=== PATIENT | female | born 1945 | race Caucasian/White ===

== ENCOUNTER 2020-01-14 15:30 | Emergency (ER) | payer OTHER ==
[2020-01-14 15:45] VITALS: TEMP 97.7; BMI 31.8
--- NOTE | 2020-01-14 16:08 | PDOC ---
History of Present Illness - General Chief Complaint: Diarrhea Stated Complaint: ABD PAIN/DIARRHEA Time Seen by Provider: 01/14/20 16:08 History Source: Patient Exam Limitations: No Limitations - History of Present Illness Initial Comments: 01/14/20 16:25 74F with PMH of asthma, HTN, DM, kidney stones, cholelithiasis, obesity presents to ED with "diarrhea" that started today. She reports 2 watery bowel movements today associated with nausea w/o vomiting, and nonradiating lower abd pain. Currently denies these symptoms. Denies fevers/chills, cp, sob, hematochezia, dysuria, hematuria. PMH: as in HPI SH: see below Meds: see med list Allergies: PCN Tob/Etoh/Rec drugs: neg x3 ROS GENERAL/CONSTITUTIONAL: No fever or chills. No weakness. HEENT: No change in vision. No ear pain or discharge. No sore throat. CARDIOVASCULAR: No chest pain or shortness of breath RESPIRATORY: No cough, wheezing, or hemoptysis. GASTROINTESTINAL: +nausea, no vomiting, +diarrhea, no constipation GENITOURINARY: No dysuria, frequency, or change in urination. MUSCULOSKELETAL: No joint or muscle swelling or pain. No neck or back pain. SKIN: No rash NEUROLOGIC: No headache, vertigo, loss of consciousness, or change in strength/sensation. ENDOCRINE: No increased thirst. No abnormal weight change HEMATOLOGIC/LYMPHATIC: No anemia, easy bleeding, or history of blood clots. ALLERGIC/IMMUNOLOGIC: No hives or skin allergy. PE GENERAL: Awake, alert, and fully oriented; no acute distress HEAD: No signs of trauma, normocephalic, atraumatic EYES: PERRLA, EOMI, sclera anicteric, conjunctiva clear ENT: Auricles normal inspection, hearing grossly normal, nares patent, moist mucosa, oropharynx clear without exudates. NECK: Normal ROM, supple, no LAD, JVD, or masses HEART: Regular rate and rhythm, normal S1/S2, no murmurs, rubs or gallops, peripheral pulses normal and equal bilaterally. LUNGS: No distress, speaks full sentences, clear to auscultation bilaterally ABDOMEN: Soft, nontender. No guarding, no rebound. No masses. Neg garcia sign. No CVA tenderness. EXTREMITIES: Normal inspection, Normal range of motion, no edema. No clubbing or cyanosis. NEUROLOGICAL: CNII-XII grossly intact. Normal speech, no focal sensorimotor deficits SKIN: Warm, Dry, normal turgor, no rashes or lesions noted Past History - Medical History Allergies/Adverse Reactions: Allergies Allergy/AdvReac Type Severity Reaction Status Date / Time Penicillins Allergy Verified 01/14/20 15:39 Home Medications: Ambulatory Orders Unobtainable 11/22/13 Asthma: Yes COPD: No GI Disorders: Yes (GERD) HTN: Yes - Psycho-Social/Smoking History Smoking History: Never smoked Have you smoked in the past 12 months: No - Substance Abuse Hx (Audit-C & DAST Scrn) How often the patient has a drink containing alcohol: Never Score: In Men: 4 or > Positive; In Women: 3 or > Positive: 0 Screen Result (Pos requires Nsg. Audit-10AR): Negative In the last yr the pt used illegal drug/Rx for NonMed reason: No Score: Yes response is considered Positive: 0 Screen Result (Positive result requires Nsg. DAST-10): Negative *Physical Exam - Vital Signs Last Vital Signs Temp Pulse Resp BP Pulse Ox 97.7 F 93 H 18 142/75 96 01/14/20 15:33 01/14/20 15:33 01/14/20 15:33 01/14/20 15:33 01/14/20 15:33 ED Treatment Course - LABORATORY CBC & Chemistry Diagram: 01/14/20 16:15 01/14/20 16:15 Medical Decision Making - Medical Decision Making 01/14/20 16:29 74F with PMH of asthma, HTN, DM, kidney stones, cholelithiasis, obesity presents to ED with "diarrhea" that started today. Abdominal exam unimpressive. DDx: 1. Gastroenteritis -> nausea with subjective diarrhea 2. Diverticulitis 3. UTI/cystitis -> UA -> UA negative 4. ACS r/o -> trop neg, EKG normal sinus rhythm w/o ST-T changes 01/14/20 19:54 -CBC and CMP unremarkable -Pt stable for d/c and advised to follow up with PCP Discharge - Discharge Information Problems reviewed: Yes Clinical Impression/Diagnosis: Abdominal pain Qualifiers: Abdominal location: unspecified location Qualified Code(s): R10.9 - Unspecified abdominal pain Diarrhea Qualifiers: Diarrhea type: unspecified type Qualified Code(s): R19.7 - Diarrhea, unspecified Condition: Stable Disposition: HOME - Admission No - Follow up/Referral Referrals: Dennis Reddy MD [Primary Care Provider] - - Patient Discharge Instructions Patient Printed Discharge Instructions: DI for Abdominal Pain-Adult, DI for Diarrhea and Traveler's Diarrhea -- Adult - Post Discharge Activity
[2020-01-14] MEDS ORDERED: LACTATED RINGERS SOLUTION 1000 ML INFUS.BAG IV ONE (17:07)
[2020-01-14 17:25] LABS: BASO % 1.1 % (0-2.0); EOS % 2.5 % (0-4.5); HEMATOCRIT 43.3 % (32.4-45.2); HEMOGLOBIN 14.4 GM/dL (10.7-15.3); LYMPH % 14.9 % (8-40); MCHC 33.2 g/dl (32.0-36.0); MEAN CELL VOLUME 81.2 fl (80-96); MEAN PLT VOLUME 9.2 fl (7.5-11.1); MONO % 8.6 % (3.8-10.2); NEUT % 72.9 % (42.8-82.8); PLATELET COUNT 223 K/MM3 (134-434); RBC 5.34 M/mm3 (3.60-5.2); WHITE BLOOD COUNT 7.4 K/mm3 (4.0-10.0)
--- NOTE | 2020-01-14 17:39 | PDOC ---
Documentation entered by Radha Goncalves SCRIBE, acting as scribe for Hayden Wang MD. Hayden Wang MD: This documentation has been prepared by the scribeSacha Ana, SCRIBE, under my direction and personally reviewed by me in its entirety. I confirm that the documentation accurately reflects all work, treatment, procedures, and medical decision making performed by me. Attending Attestation - Resident Resident Name: Christiano Marroquin - ED Attending Attestation I have performed the following: I have examined & evaluated the patient, The case was reviewed & discussed with the resident, I agree w/resident's findings & plan, Exceptions are as noted - HPI HPI: 01/14/20 17:11 Patient is a 74 year old female with a significant past medical history of asthma and GERD who presents to the emergency department for abdominal pain and diarrhea since this morning. Patient denies: fever, chills, headache, dizziness, SOB, nausea, vomiting, cough, chest pain, diarrhea, constipation, dysuria, frequency, urgency, h ematuria, or any other related symptoms. Allergies: Penicillin - Physicial Exam PE: 01/14/20 17:35 EXAMINATION CONSTITUTIONAL: Well-appearing; well-nourished; in no apparent distress EYES: PERRL; EOM intact CARD: Normal S1, S2; no murmurs, rubs, or gallops RESP: Normal chest excursion with respiration; breath sounds clear and equal bilaterally; no wheezes, rhonchi, or rales ABD: Soft, non-distended; non-tender; no palpable organomegaly, no palpable hernias EXT: Normal ROM in all four extremities; non-tender to palpation; distal pulses intact SKIN: Warm, dry, no rash NEURO: No focal neurological deficiencies. - Medical Decision Making 01/14/20 17:37 74-year-old female with history of arthritis and GERD presents with intermittent abdominal pain and loose watery stools. In the ER, patient is awake and alert, afebrile, nontoxic-appearing. Serial abdominal exams reveal no significant focal tenderness, there is no guarding rebound. Patient tolerates p.o. Differential diagnosis includes AGE versus colitis versus diverticulitis. Will obtain CBC/CMP/UA. Will administer LR. Will reassess. Will consider CT of abdomen pelvis if significant leukocytosis or focal tenderness develops. 01/14/20 19:38 Patient resting comfortably, symptom-free. Tolerates p.o. Repeat abdominal exam reveals no focal tenderness. CBC reveals no evidence of leukocytosis. UA shows 24 WBCs but 14 epithelial cells likely consistent with contamination. I do not suspect UTI. Will discharge. Discharge - Discharge Information Problems reviewed: Yes Clinical Impression/Diagnosis: Abdominal pain Qualifiers: Abdominal location: unspecified location Qualified Code(s): R10.9 - Unspecified abdominal pain Diarrhea Qualifiers: Diarrhea type: unspecified type Qualified Code(s): R19.7 - Diarrhea, unspecified Condition: Stable Disposition: HOME - Follow up/Referral Referrals: Dennis Reddy MD [Primary Care Provider] - - Patient Discharge Instructions Patient Printed Discharge Instructions: DI for Abdominal Pain-Adult, DI for Diarrhea and Traveler's Diarrhea -- Adult - Post Discharge Activity
[2020-01-14 17:46] LABS: ALBUMIN 3.7 g/dl (3.4-5.0); ALK PHOS 40 U/L (45-117); ANION GAP 5 MMOL/L (8-16); BILIRUBIN,TOTAL 0.5 mg/dL (0.2-1); BLOOD UREA NITROGEN 9.3 mg/dL (7-18); CALCIUM 9.5 mg/dL (8.5-10.1); CHLORIDE 105 mmol/L (98-107); CO2 28 mmol/L (21-32); CREATININE 0.8 mg/dL (0.55-1.3); GLUCOSE,RANDOM 121 mg/dL (74-106); POTASSIUM 4.9 mmol/L (3.5-5.1); SGOT/AST 19 U/L (15-37); SGPT/ALT 20 U/L (13-61); SODIUM 138 mmol/L (136-145); TOT PROT 7.4 g/dl (6.4-8.2)
[2020-01-14 19:19] LABS: EPI CELLS 14 /uL (0-25.1); HYALINE CASTS 0 /uL (0-3.1); URINE APPEARANCE CLEAR; URINE BACTERIA 171 /uL (0-1359); URINE BILIRUBIN NEGATIVE (NEGATIVE); URINE COLOR YELLOW; URINE GLUCOSE (UA) NEGATIVE (NEGATIVE); URINE KETONE NEGATIVE (NEGATIVE); URINE LEUK ESTERASE 1+ (NEGATIVE); URINE NITRITE NEGATIVE (NEGATIVE); URINE PROTEIN NEGATIVE (NEGATIVE); URINE UROBILINOGEN 0.2 mg/dL (0.2-1.0); URINE WBC 24 /uL (0-25.8)
[2020-01-14 19:58] VITALS: BP 138/72; PULSE 80
[2020-01-14 20:53] LABS: URINE RBC 46.5 /uL (0-23.9)
--- NOTE | 2020-01-17 11:41 | EKG ---
Test Reason : Blood Pressure : / mmHG Vent. Rate : 085 BPM Atrial Rate : 085 BPM P-R Int : 192 ms QRS Dur : 072 ms QT Int : 376 ms P-R-T Axes : 050 008 016 degrees QTc Int : 447 ms POOR DATA QUALITY, INTERPRETATION MAY BE ADVERSELY AFFECTED NORMAL SINUS RHYTHM NONSPECIFIC ST ABNORMALITY ABNORMAL ECG WHEN COMPARED WITH ECG OF 23-OCT-2006 18:17, NO SIGNIFICANT CHANGE WAS FOUND Confirmed by Julio Westbrook ([id number]) on 01/17/2020 11:41:10 AM Referred By: Confirmed By:Julio Westbrook
== END 2020-01-14 19:58 | disposition home or self-care (01) ==
LOC: JER 15:30
DX: R10.9 Unspecified abdominal pain (principal); R19.7 Diarrhea, unspecified
CPT/HCPCS: 36415; 80053; 81003; 82550; 84484; 85025; 93005; 93010; 99284-25; U0003

== ENCOUNTER 2021-04-19 16:06 | Inpatient (IN) | payer OTHER ==
[2021-04-19] MEDS ORDERED: DEXAMETHASONE SOD PHOSPHATE 4 MG/1 ML VIAL IVPUSH ONE (17:43)
[2021-04-19] MEDS ORDERED: DEXAMETHASONE SOD PHOSPHATE 10 MG/1 ML VIAL ONE (17:48)
[2021-04-19 18:23] LABS: BASO % 2.7 % (0-2.0); EOS % 1.2 % (0-4.5); HEMATOCRIT 41.5 % (32.4-45.2); HEMOGLOBIN 13.4 GM/dL (10.7-15.3); LYMPH % 6.8 % (8-40); MCH 26.4 pg (25.7-33.7); MCHC 32.3 g/dl (32.0-36.0); MEAN PLT VOLUME 8.9 fl (7.5-11.1); MONO % 13.4 % (3.8-10.2); NEUT % 75.9 % (42.8-82.8); PLATELET COUNT 187 10^3/uL (134-434); RBC 5.07 M/mm3 (3.60-5.2); RDW 15.1 % (11.6-15.6); WHITE BLOOD COUNT 5.7 K/mm3 (4.0-10.0)
[2021-04-19 18:32] LABS: INR 1.16 (0.83-1.09)
[2021-04-19 18:35] LABS: ACTIVATED PTT 26.8 SECONDS (25.2-36.5)
[2021-04-19 18:43] LABS: CHLORIDE 106 mmol/L (98-107); SODIUM 135 mmol/L (136-145)
[2021-04-19 18:45] LABS: ALBUMIN 3.6 g/dl (3.4-5.0); BILIRUBIN,DIRECT < 0.1 mg/dL (0.0-0.2); BLOOD UREA NITROGEN 13.6 mg/dL (7-18); CALCIUM 9.2 mg/dL (8.5-10.1); CO2 26 mmol/L (21-32); GLUCOSE,RANDOM 129 mg/dL (74-106)
[2021-04-19 18:47] LABS: CREATININE 0.9 mg/dL (0.55-1.3); LDH 588 U/L (84-246)
[2021-04-19 18:48] LABS: SGOT/AST 89 U/L (15-37)
[2021-04-19 18:49] LABS: BILIRUBIN,TOTAL 0.4 mg/dL (0.2-1); TOT PROT 7.4 g/dl (6.4-8.2)
[2021-04-19 18:51] LABS: ALK PHOS 36 U/L (45-117)
[2021-04-19 19:59] LABS: ANION GAP 4 MMOL/L (8-16); SGPT/ALT 30 U/L (13-61)
[2021-04-19 20:51] LABS: EPI CELLS 12 /uL (0-25.1); HYALINE CASTS 0 /uL (0-3.1); URINE APPEARANCE CLEAR; URINE BACTERIA 185 /uL (0-1359); URINE BILIRUBIN NEGATIVE (NEGATIVE); URINE COLOR YELLOW; URINE GLUCOSE (UA) NEGATIVE (NEGATIVE); URINE KETONE NEGATIVE (NEGATIVE); URINE LEUK ESTERASE TRACE (NEGATIVE); URINE NITRITE NEGATIVE (NEGATIVE); URINE PROTEIN NEGATIVE (NEGATIVE); URINE RBC 7 /uL (0-23.9); URINE UROBILINOGEN 0.2 mg/dL (0.2-1.0); URINE WBC 23 /uL (0-25.8)
[2021-04-19 23:36] LABS: CALCIUM 9.5 mg/dL (8.5-10.1)
[2021-04-19 23:38] LABS: BLOOD UREA NITROGEN 14.5 mg/dL (7-18)
[2021-04-19 23:40] LABS: CREATININE 1.1 mg/dL (0.55-1.3)
[2021-04-20 05:40] VITALS: BMI 37.1
[2021-04-20] MEDS: INSULIN SLIDING SCALE (NOVOLOG) 1 VIAL SQ SCH ×4 (06:21→21:07)
[2021-04-20] MEDS ORDERED: PT OWN MED DRAWER 7, Y5N ONE (09:15)
[2021-04-20] MEDS: CHOLECALCIFEROL (VIT D3) 1,000 UNIT (25 MCG) TABLET PO SCH (09:18)
[2021-04-20] MEDS: ASCORBIC ACID 500 MG TABLET (FP) PO SCH ×2 (09:18→21:07)
[2021-04-20] MEDS: DEXAMETHASONE SOD PHOSPHATE 4 MG/1 ML VIAL IVPB SCH (09:19)
[2021-04-20] MEDS: ENOXAPARIN NA (PORCINE) 40 MG/0.4 ML DISP.SYRIN SQ SCH (09:20)
[2021-04-20 10:33] LABS: BASO % 0.2 % (0-2.0); HEMATOCRIT 40.9 % (32.4-45.2); HEMOGLOBIN 13.4 GM/dL (10.7-15.3); LYMPH % 11.7 % (8-40); MCH 26.9 pg (25.7-33.7); MCHC 32.8 g/dl (32.0-36.0); MEAN CELL VOLUME 82.1 fl (80-96); MEAN PLT VOLUME 9.2 fl (7.5-11.1); MONO % 3.6 % (3.8-10.2); NEUT % 84.5 % (42.8-82.8); PLATELET COUNT 210 10^3/uL (134-434); RBC 4.97 M/mm3 (3.60-5.2); RDW 14.9 % (11.6-15.6); WHITE BLOOD COUNT 4.9 K/mm3 (4.0-10.0)
[2021-04-20 10:51] LABS: CHLORIDE 105 mmol/L (98-107); SODIUM 138 mmol/L (136-145)
[2021-04-20 11:03] LABS: CALCIUM 9.2 mg/dL (8.5-10.1)
[2021-04-20 11:04] LABS: ALBUMIN 3.2 g/dl (3.4-5.0); ANION GAP 10 MMOL/L (8-16); BLOOD UREA NITROGEN 15.4 mg/dL (7-18); CO2 23 mmol/L (21-32); GLUCOSE,RANDOM 232 mg/dL (74-106)
[2021-04-20 11:05] LABS: PHOSPHOROUS 3.3 mg/dL (2.5-4.9); SGPT/ALT 24 U/L (13-61)
[2021-04-20 11:07] LABS: BILIRUBIN,TOTAL 0.4 mg/dL (0.2-1); CREATININE 0.9 mg/dL (0.55-1.3); SGOT/AST 17 U/L (15-37); TOT PROT 6.8 g/dl (6.4-8.2)
[2021-04-20 11:09] LABS: ALK PHOS 33 U/L (45-117)
[2021-04-20] MEDS ORDERED: PANTOPRAZOLE 40 MG TABLET PO ONE (22:16)
[2021-04-21] MEDS: INSULIN SLIDING SCALE (NOVOLOG) 1 VIAL SQ SCH ×4 (06:21→21:11)
[2021-04-21] MEDS ORDERED: PT OWN MED DRAWER 7, Y5N ONE (09:01)
[2021-04-21] MEDS: DEXAMETHASONE SOD PHOSPHATE 4 MG/1 ML VIAL IVPB SCH (09:07)
[2021-04-21] MEDS: CHOLECALCIFEROL (VIT D3) 1,000 UNIT (25 MCG) TABLET PO SCH (09:07)
[2021-04-21] MEDS: ASCORBIC ACID 500 MG TABLET (FP) PO SCH ×2 (09:07→21:09)
[2021-04-21] MEDS: ENOXAPARIN NA (PORCINE) 40 MG/0.4 ML DISP.SYRIN SQ SCH (09:09)
[2021-04-21] MEDS ORDERED: INSULIN (NOVOLOG) ASPART 100 UNITS/ML 10ML VIAL ONE (10:49)
[2021-04-21] MEDS ORDERED: guaiFENesin 200 MG/10 ML 10 ML UNIT-DOSE CUPS PO ONE (21:18)
[2021-04-22] MEDS: INSULIN SLIDING SCALE (NOVOLOG) 1 VIAL SQ SCH ×3 (06:12→17:06)
[2021-04-22] MEDS: DEXAMETHASONE SOD PHOSPHATE 4 MG/1 ML VIAL IVPB SCH (09:35)
[2021-04-22] MEDS: ENOXAPARIN NA (PORCINE) 40 MG/0.4 ML DISP.SYRIN SQ SCH (09:36)
[2021-04-22] MEDS: ASCORBIC ACID 500 MG TABLET (FP) PO SCH (09:36)
[2021-04-22] MEDS ORDERED: PANTOPRAZOLE 40 MG TABLET PO SCH (10:00)
[2021-04-22 10:12] LABS: BASO % 0.3 % (0-2.0); EOS % 0.1 % (0-4.5); HEMATOCRIT 41.3 % (32.4-45.2); HEMOGLOBIN 13.6 GM/dL (10.7-15.3); LYMPH % 11.5 % (8-40); MCH 27.1 pg (25.7-33.7); MEAN CELL VOLUME 81.9 fl (80-96); MEAN PLT VOLUME 9.6 fl (7.5-11.1); MONO % 6.1 % (3.8-10.2); PLATELET COUNT 234 10^3/uL (134-434); RBC 5.03 M/mm3 (3.60-5.2); RDW 15.2 % (11.6-15.6); WHITE BLOOD COUNT 9.6 K/mm3 (4.0-10.0)
[2021-04-22 10:20] LABS: CHLORIDE 103 mmol/L (98-107); SODIUM 140 mmol/L (136-145)
[2021-04-22 10:27] LABS: ALBUMIN 3.8 g/dl (3.4-5.0); ANION GAP 7 MMOL/L (8-16); BLOOD UREA NITROGEN 23.1 mg/dL (7-18); CALCIUM 9.3 mg/dL (8.5-10.1); CO2 29 mmol/L (21-32); GLUCOSE,RANDOM 132 mg/dL (74-106); MAGNESIUM 2.4 mg/dL (1.8-2.4); PHOSPHOROUS 3.7 mg/dL (2.5-4.9)
[2021-04-22 10:28] LABS: SGPT/ALT 21 U/L (13-61)
[2021-04-22 10:29] LABS: BILIRUBIN,TOTAL 0.5 mg/dL (0.2-1)
[2021-04-22 10:30] LABS: ALK PHOS 30 U/L (45-117); CREATININE 0.9 mg/dL (0.55-1.3); SGOT/AST 13 U/L (15-37)
[2021-04-22 10:33] LABS: LDH 162 U/L (84-246)
[2021-04-22 10:52] LABS: ERYTHROCYTE SEDIMENTATION RATE 7 mm/hr (0-30)
[2021-04-22] MEDS: CHOLECALCIFEROL (VIT D3) 1,000 UNIT (25 MCG) TABLET PO SCH (12:28)
[2021-04-22 15:59] VITALS: BP 140/79; PULSE 71; TEMP 98.2
[2021-04-22] MEDS ORDERED: ROSUVASTATIN CA 10 MG TABLET PO SCH (22:00)
== END 2021-04-22 18:13 | disposition home or self-care (01) | DRG 177 ==
LOC: JER 16:06 → JERBED 20:27 → J8W 04-20 03:54
PROVIDERS: ADMIT Internal Medicine; ATTEND Internal Medicine
PROC: 3E0333Z Introduction of Anti-inflammatory into Peripheral Vein, Percutaneous Approach (ICD-10-PCS; principal; 2021-04-19)
DX: U07.1 COVID-19 (principal); J12.82 Pneumonia due to coronavirus disease 2019; J96.01 Acute respiratory failure with hypoxia; K21.9 Gastro-esophageal reflux disease without esophagitis; I10 Essential (primary) hypertension; E87.5 Hyperkalemia; E11.65 Type 2 diabetes mellitus with hyperglycemia; R74.01 Elevation of levels of liver transaminase levels; D64.9 Anemia, unspecified; E66.9 Obesity, unspecified; Z68.37 Body mass index [BMI] 37.0-37.9, adult; H91.93 Unspecified hearing loss, bilateral; Z87.442 Personal history of urinary calculi
CPT/HCPCS: 36415; 71045-TC-FY; 80048; 80053; 81003; 82248; 82550; 82553; 82728; 82962; 83036; 83605; 83615; 83735; 84100; 84443; 84484; 85025; 85379; 85610; 85651; 85730; 86140; 87040; 87086; 87804; 87807; 93005; 93010; 99285-25; C9803; U0003; U0005

== ENCOUNTER 2021-09-27 21:49 | Emergency (ER) | payer OTHER ==
[2021-09-27 21:53] VITALS: BP 119/80; PULSE 79; TEMP 98; BMI 35.6
== END 2021-09-28 00:40 | disposition home or self-care (01) ==
LOC: JER 21:49
DX: M25.562 Pain in left knee (principal)
CPT/HCPCS: 73562-TC-LT-FY; 99283-25